=== PATIENT | male | born 1955 | race Caucasian/White ===

== ENCOUNTER 2017-09-04 22:24 | Emergency (ER) | payer OTHER ==
[~2017-09-04] VITALS: Ht 182.9 cm; Wt 108.9 kg
[2017-09-04] MEDS ORDERED: LEVOTHYROXINE100 MC1 PO (22:38)
[2017-09-04] MEDS ORDERED: COZAAR 25 MG TA25 MG PO (22:38)
[2017-09-04] MEDS ORDERED: XANAX 0.25 MG0.25 MG PO (22:39)
[2017-09-04] MEDS ORDERED: ASPIR 8181 MG PO (22:39)
[2017-09-05] MEDS ORDERED: PENICILLIN V P500 MG PO (00:05)
[2017-09-05 00:13] VITALS: BP 155/74
== END 2017-09-05 00:13 | disposition home or self-care (01) ==
LOC: M.ERS 22:24
DX: S61.212A Laceration without foreign body of right middle finger without damage to nail, initial encounter (principal); E03.9 Hypothyroidism, unspecified; I10 Essential (primary) hypertension; F41.9 Anxiety disorder, unspecified; Z91.040 Latex allergy status; W26.8XXA Contact with other sharp object(s), not elsewhere classified, initial encounter; Y93.89 Activity, other specified; Y92.89 Other specified places as the place of occurrence of the external cause; Y99.8 Other external cause status